=== PATIENT | female | born 1930 | race Caucasian/White ===

== ENCOUNTER 2020-12-21 18:33 | Inpatient (IN) | payer MEDICARE, BC ==
[2020-12-21 20:40] LABS: #Eosinphils 0.1 10x3/uL (0.0-0.5); #Monocytes 0.8 10x3/uL (0.0-1.1); #Neutrophils 6.1 10x3/uL (1.5-8.4); %Basophils 0.4 % (0.0-2.0); %Eosinophils 0.6 % (0.0-6.0); %Lymphocytes 9.8 % (18.0-47.0); %Neutrophils 78.9 % (40.0-75.0); Hemoglobin 11.7 g/dL (12.0-15.5); Mean Corpuscular HGB CONC 31.1 g/dL (32.0-36.0); Mean Corpuscular Hemoglobin 30.2 pg (27.0-33.0); Mean Corpuscular Volume 96.9 fl (81.6-98.3); Mean Platelet Volume 10.1 fl (7.4-10.4); Platelet Count 135 10x3/uL (150-450); RBC Distribution Width 18.5 % (11.5-14.5); Red Blood Cell (RBC) Count 3.88 10x6/uL (3.90-5.03); White Blood Cell (WBC) Count 7.7 10x3/uL (3.5-10.5)
[2020-12-21 20:44] LABS: Bilirubin Neg (Negative); Blood, Urine 25 (Negative); Clarity Cloudy (Clear); Glucose, Urine (Dipstick) Normal (Negative); Ketone, Urine 5 mg/dL (Negative); Leukocyte 500 (Negative); Nitrite Negative (Negative); Protein, Urine (Dipstick) 15 mg/dl (Neg-Trace); Specific Gravity, Urine 1.025 (1.002-1.036); Urobilinogen Normal mg/dL (Less than 2)
[2020-12-21 20:50] LABS: ALT (SGPT) 12 U/L (8-55); AST (SGOT) 20 U/L (5-34); Albumin 3.5 g/dL (3.4-4.8); Alkaline Phosphatase 81 U/L (40-110); Anion Gap 13 mmol/L (10-20); BUN (Urea Nitrogen) 29 mg/dL (9.8-20.1); Bilirubin, Total 1.2 mg/dL (0.2-1.2); Calc. Creatinine Clearance 0 mL/min (70-130); Calcium 9.5 mg/dL (7.8-10.44); Carbon Dioxide 24 mmol/L (23-31); Chloride 105 mmol/L (98-107); Globulin 2.4 g/dL (2.4-3.5); Glucose 157 mg/dL (83-110); Potassium 3.6 mmol/L (3.5-5.1); Protein, Total 5.9 g/dL (5.8-8.1); Sodium 138 mmol/L (136-145)
[2020-12-21 20:53] LABS: Bacteria/HPF 4+ HPF (None Seen); Mucous/LPF None Seen LPF (<2+); Squamous Epithelial None Seen HPF (0-3); WBC/HPF Greater than 50 HPF (0-3)
[2020-12-21] MEDS ORDERED: cefTRIAXone\\ROCEPHIN 1 GM VIAL ONE (21:50)
[2020-12-21] MEDS ORDERED: Acetaminophen 325 MG TAB PER TUBE PRN (21:51)
[2020-12-21] MEDS ORDERED: Senokot S 8.6-50 MG TAB PO PRN (21:51)
[2020-12-21] MEDS ORDERED: Guaifenesin DM 100-10/5 ML UDCUP PO PRN (21:51)
[2020-12-21] MEDS ORDERED: Ondansetron PF 4 MG/2 ML Vial IVP PRN (21:51)
[2020-12-21 23:20] LABS: INR-International Normal Ratio 1.2; Prothrombin Time 12.3 sec (9.5-12.1)
[2020-12-21] MEDS ORDERED: NS 0.9% w/ 20 MEQ KCL 1,000 ML/1,000 ML BAG IV SCH (23:59)
[2020-12-22 00:35] VITALS: BMI 14.8
[2020-12-22 05:23] LABS: Anion Gap 11 mmol/L (10-20); BUN (Urea Nitrogen) 25 mg/dL (9.8-20.1); Calc. Creatinine Clearance 39 mL/min (70-130); Calcium 8.7 mg/dL (7.8-10.44); Carbon Dioxide 26 mmol/L (23-31); Chloride 109 mmol/L (98-107); Glucose 96 mg/dL (83-110); Magnesium 2.1 mg/dL (1.6-2.6); Potassium 3.5 mmol/L (3.5-5.1); Sodium 142 mmol/L (136-145)
[2020-12-22] MEDS ORDERED: Enoxaparin Sodium 30 MG/0.3 ML SYRINGE ONE (08:55)
[2020-12-22] MEDS: Famotidine 20 MG TAB PO SCH (09:12)
[2020-12-22] MEDS: Enoxaparin Sodium 30 MG/0.3 ML SYRINGE SC SCH (09:17)
[2020-12-22 13:42] LABS: SARS-CoV-2 PCR by NAA Not Detected (NotDetected)
[2020-12-22] MEDS ORDERED: Ondansetron ODT 4 MG TAB PO PRN (18:41)
[2020-12-22] MEDS ORDERED: Sterile Water 10 ML VIAL FS SCH (21:00)
[2020-12-22] MEDS ORDERED: cefTRIAXone\\ROCEPHIN 1 GM in Sodium Chloride 0.9% 100 ML IVPB SCH (21:00)
[2020-12-22] MEDS: Citalopram 20 MG TAB PER TUBE SCH (21:10)
[2020-12-22] MEDS: Lidocaine 1% PF 5 ML VIAL FS SCH (21:10)
[2020-12-22] MEDS: cefTRIAXone\\ROCEPHIN 1 GM VIAL IM SCH (21:10)
[2020-12-23] MEDS: Enoxaparin Sodium 30 MG/0.3 ML SYRINGE SC SCH (10:36)
[2020-12-23] MEDS: Famotidine 20 MG TAB PO SCH (10:36)
[2020-12-23] MEDS: Citalopram 20 MG TAB PER TUBE SCH (22:13)
[2020-12-23] MEDS: cefTRIAXone\\ROCEPHIN 1 GM VIAL IM SCH (22:54)
[2020-12-23] MEDS: Lidocaine 1% PF 5 ML VIAL FS SCH (22:54)
[2020-12-24] MEDS: Famotidine 20 MG TAB PO SCH (11:38)
[2020-12-24] MEDS: Enoxaparin Sodium 30 MG/0.3 ML SYRINGE ONE ×2 (11:38→11:59)
[2020-12-24] MEDS: Enoxaparin Sodium 30 MG/0.3 ML SYRINGE SC SCH (11:39)
[2020-12-24] MEDS: Lidocaine 1% PF 5 ML VIAL FS SCH (21:17)
[2020-12-24] MEDS: Citalopram 20 MG TAB PER TUBE SCH (21:17)
[2020-12-24] MEDS: cefTRIAXone\\ROCEPHIN 1 GM VIAL IM SCH (21:17)
[2020-12-25] MEDS: Enoxaparin Sodium 30 MG/0.3 ML SYRINGE SC SCH (11:54)
[2020-12-25] MEDS: Famotidine 20 MG TAB PO SCH (11:54)
[2020-12-25] MEDS: Citalopram 20 MG TAB PER TUBE SCH (21:19)
[2020-12-25] MEDS ORDERED: Lidocaine 1% (PF) 30 ML VIAL ONE (21:38)
[2020-12-25] MEDS: cefTRIAXone\\ROCEPHIN 1 GM VIAL IM SCH (22:12)
[2020-12-25] MEDS ORDERED: Lidocaine 1% (PF) 30 ML VIAL FS SCH (22:15)
[2020-12-25] MEDS: Lidocaine 1% PF 5 ML VIAL FS SCH (23:15)
[2020-12-26] MEDS: Enoxaparin Sodium 30 MG/0.3 ML SYRINGE SC SCH (09:55)
[2020-12-26] MEDS: Famotidine 20 MG TAB PO SCH (09:55)
[2020-12-26] MEDS: Citalopram 20 MG TAB PER TUBE SCH ×2 (22:05→22:21)
[2020-12-26] MEDS: Lidocaine 1% (PF) 30 ML VIAL FS SCH ×2 (22:05→22:21)
[2020-12-26] MEDS: cefTRIAXone\\ROCEPHIN 1 GM VIAL IM SCH ×2 (22:05→22:21)
[2020-12-27] MEDS: Enoxaparin Sodium 30 MG/0.3 ML SYRINGE SC SCH (10:02)
[2020-12-27] MEDS: Famotidine 20 MG TAB PO SCH (10:03)
[2020-12-27] MEDS: Lidocaine 1% (PF) 30 ML VIAL FS SCH (21:46)
[2020-12-27] MEDS: Citalopram 20 MG TAB PER TUBE SCH (21:56)
[2020-12-28 06:46] LABS: #Eosinphils 0.3 10x3/uL (0.0-0.5); #Monocytes 0.9 10x3/uL (0.0-1.1); #Neutrophils 3.4 10x3/uL (1.5-8.4); %Basophils 0.6 % (0.0-2.0); %Eosinophils 4.8 % (0.0-6.0); %Lymphocytes 11.4 % (18.0-47.0); %Monocytes 16.4 % (0.0-10.0); %Neutrophils 66.4 % (40.0-75.0); Hemoglobin 10.9 g/dL (12.0-15.5); Mean Corpuscular HGB CONC 31.5 g/dL (32.0-36.0); Mean Corpuscular Hemoglobin 30.2 pg (27.0-33.0); Mean Corpuscular Volume 95.8 fl (81.6-98.3); Mean Platelet Volume 10.2 fl (7.4-10.4); Platelet Count 203 10x3/uL (150-450); RBC Distribution Width 17.2 % (11.5-14.5); Red Blood Cell (RBC) Count 3.61 10x6/uL (3.90-5.03); White Blood Cell (WBC) Count 5.2 10x3/uL (3.5-10.5)
[2020-12-28 07:03] LABS: Anion Gap 13 mmol/L (10-20); BUN (Urea Nitrogen) 14 mg/dL (9.8-20.1); Calc. Creatinine Clearance 42 mL/min (70-130); Carbon Dioxide 24 mmol/L (23-31); Chloride 104 mmol/L (98-107); Glucose 93 mg/dL (83-110); Sodium 137 mmol/L (136-145)
[2020-12-28] MEDS: Famotidine 20 MG TAB PO SCH (10:04)
[2020-12-28] MEDS: Enoxaparin Sodium 30 MG/0.3 ML SYRINGE SC SCH (10:09)
[2020-12-28] MEDS: Citalopram 20 MG TAB PER TUBE SCH (21:00)
[2020-12-28] MEDS ORDERED: Lidocaine 1% PF 5 ML VIAL FS SCH (21:00)
[2020-12-29] MEDS: Enoxaparin Sodium 30 MG/0.3 ML SYRINGE SC SCH (10:34)
[2020-12-29] MEDS: Famotidine 20 MG TAB PO SCH (10:34)
[2020-12-29 12:25] VITALS: BP 102/45; TEMP 97.8
== END 2020-12-29 14:55 | DRG 689 ==
LOC: CSHERS 18:33 → INTOOBSV 23:56 → EEVIPCON 23:56 → CSHTELE 23:56 → OBSVTOIN 23:56 → UNDOADMOB 23:56 → UNDODISIN 12-29 14:55
PROVIDERS: ADMIT Student in an Organized Health Care Education/Training Program; ATTEND Internal Medicine
DX: N39.0 Urinary tract infection, site not specified (principal); E43 Unspecified severe protein-calorie malnutrition; N17.9 Acute kidney failure, unspecified; Z68.1 Body mass index [BMI] 19.9 or less, adult; Z66 Do not resuscitate; Z20.822 Contact with and (suspected) exposure to COVID-19; M19.90 Unspecified osteoarthritis, unspecified site; F03.90 Unspecified dementia, unspecified severity, without behavioral disturbance, psychotic disturbance, mood disturbance, and anxiety; D63.8 Anemia in other chronic diseases classified elsewhere; I69.991 Dysphagia following unspecified cerebrovascular disease; R13.10 Dysphagia, unspecified; Z60.8 Other problems related to social environment; N18.2 Chronic kidney disease, stage 2 (mild); F32.9 Major depressive disorder, single episode, unspecified; R13.12 Dysphagia, oropharyngeal phase; B96.20 Unspecified Escherichia coli [E. coli] as the cause of diseases classified elsewhere; E86.0 Dehydration; D63.1 Anemia in chronic kidney disease; Z79.01 Long term (current) use of anticoagulants; Z79.899 Other long term (current) drug therapy; Z88.5 Allergy status to narcotic agent; Z88.0 Allergy status to penicillin; Z90.710 Acquired absence of both cervix and uterus; Z93.1 Gastrostomy status
CPT/HCPCS: 36415; 51701; 80048; 80053; 81003; 81015; 83735; 85025; 85610; 87077; 87086; 87186; 87635; 96365; 96372; G0378; J0696; J1650; J2001; J3480; U0003; U0005